=== PATIENT | female | born 1960 | race Caucasian/White ===

== ENCOUNTER → 2018-01-23 09:07 | Outpatient (CLI) | payer BC, SELFPAY ==
[2018-01-29 11:13] LABS: HPV APTIMA, High Risk Negative (Negative)
== END ==
PROVIDERS: Visit Provider Nurse Practitioner Women's Health
DX: Z12.4 Encounter for screening for malignant neoplasm of cervix (principal)
CPT/HCPCS: 88175; G0145

== ENCOUNTER → 2018-01-23 12:01 | Outpatient (CLI) | payer BC, SELFPAY ==
--- NOTE | 2018-01-23 12:17 | BI_ITS ---
MAMMOGRAPHY - BILATERAL SCREENING REASON FOR EXAM: Female, 57 years old. Routine annual screening examination. PERTINENT HISTORY: Mother with breast cancer. Remote left excisional breast biopsy. TECHNIQUE: Digital bilateral breast quique (3D mammographic acquisition) in the CC and MLO projections. 2-D mediolateral oblique (MLO) and craniocaudad (CC) views of both breasts were obtained. CAD: Full Field Digital Mammography with Computer Added Detection was performed. COMPARISON: Comparison is made with prior outside examination dated January 14, 2017. FINDINGS: Breast Composition: There are scattered areas of fibroglandular density. There are no dominant masses or suspicious calcifications. Stable benign-appearing right axillary nodes. A tissue clip marker is seen in the deep slightly upper lateral portion of the left breast. No other significant abnormalities are identified. There has been no significant change since the prior study. BI/SCREENING MAMM (CAD), BILAT IMPRESSION: Stable bilateral screening mammogram. Yearly follow-up mammogram recommended. (A) ASSESSMENT CATEGORY: BIRADS Category 2: Benign. A letter regarding these results will be sent to the patient by the facility within 30 days. Approximately 10% of breast cancers are not detected by mammography. A normal mammogram should not delay biopsy of a clinically suspicious abnormality. [id number] Electronically Signed: Tre Duarte MD at 14:36 EDT Tel [phone], Service support ,
== END ==
PROVIDERS: Family Provider Family Medicine; PCP Family Medicine; Visit Provider Nurse Practitioner Women's Health
DX: Z12.31 Encounter for screening mammogram for malignant neoplasm of breast (principal)
CPT/HCPCS: 77063; 77067

== ENCOUNTER → 2019-02-25 | Outpatient (CLI) | payer BC, SELFPAY ==
[2019-02-25 12:09] VITALS: BMI 31.4
--- NOTE | 2019-02-25 12:43 | BI_ITS ---
MAMMOGRAPHY - BILATERAL SCREENING REASON FOR EXAM: Female, 58 years old. Routine annual screening examination. PERTINENT HISTORY: Mother with breast cancer. TECHNIQUE: Digital bilateral breast isrrael (3D mammographic acquisition) in the CC and MLO projections. 2-D mediolateral oblique (MLO) and craniocaudad (CC) views of both breasts were obtained. CAD: Full Field Digital Mammography with Computer Added Detection was performed. COMPARISON: Comparison is made with prior study dated January 23, 2018. FINDINGS: Breast Composition: There are scattered areas of fibroglandular density. There are no dominant masses or suspicious calcifications. Once again, a tissue clip marker is in the upper lateral aspect of the left breast. Stable appearance of the bilateral axillary lymph nodes. No other significant abnormalities are identified. There has been no significant change since the prior study. BI/SCREEN MAMM (CAD) W/ISRRAEL BILAT IMPRESSION: Stable bilateral screening mammogram. Yearly follow-up mammogram recommended. (A) ASSESSMENT CATEGORY: BIRADS Category 2: Benign. A letter regarding these results will be sent to the patient by the facility within 30 days. Approximately 10% of breast cancers are not detected by mammography. A normal mammogram should not delay biopsy of a clinically suspicious abnormality. [id number] Electronically Signed: Tre Duarte, at 14:19 EDT , Service support ,
== END | disposition home or self-care (01) ==
LOC: OPBI 12:39
PROVIDERS: Family Provider Family Medicine; PCP Family Medicine; Referring Provider Nurse Practitioner Women's Health; Visit Provider Nurse Practitioner Women's Health
DX: Z12.31 Encounter for screening mammogram for malignant neoplasm of breast (principal)
CPT/HCPCS: 77063; 77067

== ENCOUNTER 2019-07-21 07:52 | Day surgery (SDC) | payer BC, SELFPAY ==
[2019-02-25 12:09] VITALS: BMI 31.4
[2019-07-09 13:16] VITALS: BMI 31.4
[2019-07-21] VITALS (7 sets, daily range): BP systolic 93–135; BP diastolic 62–88; PULSE 62–78; RESP 14–16; TEMP 36.1–36.6; O2SAT 96–100; BMI 29.6
[2019-07-21] MEDS: Lactated Ringers 1,000 ML 100 ML IV (08:30)
--- NOTE | 2019-07-21 08:52 | PCM.HP.STD ---
Problem List (1) Screening for intestinal cancer Status: Acute History of Present Illness Date of Admission: 07/21/19 The patient is a 58 year old F who presents for a surveillance colonoscopy today. She has had no symptoms. No abdominal pain. No bright red blood per rectum. Her father had colon cancer. Her most recent colonoscopy was January 20, 2016. The technique was difficult to a complex tortuous colon. Sedation was increased. A 7 mm polyp was seen at the splenic flexure. Of 4 mm polyp was seen in the descending colon. These were removed. And were tubular adenomas. Past Medical History Past Medical History (Chronic Problems): Chronic Problems (Last Reviewed 02/25/19 @ 11:54 by Marika Young) Pre-diabetes (Chronic) Seasonal allergies (Chronic) Anxiety (Chronic) Chronic back pain (Chronic) Chronic neck pain (Chronic) Hiatal hernia (Chronic) Hypertension (Chronic) Medical History: Medical History (Last Reviewed 02/25/19 @ 11:54 by Marika Young) Pre-diabetes (Chronic) R73.03 Seasonal allergies (Chronic) J30.2 Anxiety (Chronic) F41.9 Chronic back pain (Chronic) M54.9, G89.29 Chronic neck pain (Chronic) M54.2, G89.29 Hiatal hernia (Chronic) K44.9 Hypertension (Chronic) I10 Allergies codeine Allergy (Mild, Verified 07/21/19 08:20) upset stomach Penicillins Allergy (Mild, Verified 07/21/19 08:20) unknown Home Medications: Ambulatory Orders Medication Instructions Recorded cetirizine 10 mg tablet 10 mg PO QDAY 01/23/18 lisinopril 10 mg tablet 10 mg PO QDAY 01/23/18 lorazepam 0.5 mg tablet 0.5 mg PO PRN PRN 01/23/18 tramadol 50 mg tablet 100 mg PO BID 01/23/18 multivitamin tablet 1 tab PO DAILY 02/25/19 omeprazole 20 mg capsule,delayed 20 mg PO PRN PRN 02/25/19 release peg 3350-electrolytes 236 4,000 ml PO ONCE #4000 ml 07/08/19 gram-22.74 gram-6.74 gram-5.86 gram solution Surgical History: Surgical History (Last Reviewed 02/25/19 @ 11:54 by Marika Young) Status post left breast lumpectomy Z98.890 umbilical surgery Smoking Status: Former smoker Tobacco Use: Non-smoker Review of Systems HEENT: Denies: Difficulty Swallowing Cardiovascular: Denies: Chest Pressure Respiratory: Denies: Cough Gastrointestinal: Denies: Abdominal Pain Endocrine: Denies: Change in Body Habitus VTE Information - Inpt Only VTE Present on Admission: No Patient Problems: Active and Suspected Problems (Last Reviewed 02/25/19 @ 11:54 by Marika Young) Screening for intestinal cancer (Acute) - Physical Exam General: Alert, Oriented x3, Cooperative, No apparent distress Oral: Moist Mucosa Lungs: Clear to auscultation Cardiovascular: Regular rate, Regular Rhythm Abdomen: Bowel Sounds Present, Soft, Non Tender Vital Signs Temp Pulse Resp BP Pulse Ox 97.8 F 78 16 113/69 96 07/21/19 08:21 07/21/19 08:21 07/21/19 08:21 07/21/19 08:21 07/21/19 08:21 Oxygen Delivery Method Room Air Weight: 156 lb 11.979 oz Body Mass Index (BMI) 29.6 Assessment/Plan All Active Problems (Last Reviewed 02/25/19 @ 11:54 by Marika Young) Screening for intestinal cancer (Acute) I recommended the patient a surveillance colonoscopy. She is aware of the technique, benefits, risks, alternatives. She has had an opportunity to ask and have questions answered. She presents via our open access program today. We will proceed as noted. Yefri Brizuela M.D., F.A.C.S.
--- NOTE | 2019-07-21 09:34 | OP.ENDO_ITS ---
07/21/2019 Yefri Sahni [address] [place] [address] Re : Colonoscopy procedure for Terri Mccallum Dear Dr. Sahni This procedure was performed on Sunday, July 21, 2019. My impressions and recommendations are as follows: Impressions : - Hemorrhoids found on perianal exam. - Diverticulosis in the sigmoid colon and in the descending colon. - The examination was otherwise normal. - No specimens collected. Recommendations : - Discharge patient to home. - Resume previous diet. - Continue present medications. - Repeat colonoscopy in 5 years for surveillance. My findings are described in the full procedure note, which is enclosed. If I can be of further assistance, please feel free to contact me at Doctor phone number(s): Work: . Sincerely, Yefri Brizuela MD 07/21/2019 9:33:43 AM This report has been signed electronically.
== END 2019-07-21 10:28 | disposition home or self-care (01) ==
LOC: EN 07:53 → AC 07:54
PROVIDERS: Family Provider Family Medicine; PCP Family Medicine; Referring Provider Family Medicine; Visit Provider Surgery
PROC: 0DJD8ZZ Inspection of Lower Intestinal Tract, Via Natural or Artificial Opening Endoscopic (ICD-10-PCS; CPT 45378; principal; 2019-07-21 09:10)
DX: Z12.11 Encounter for screening for malignant neoplasm of colon (principal); K64.9 Unspecified hemorrhoids; K57.30 Diverticulosis of large intestine without perforation or abscess without bleeding; Z86.010 Personal history of colon polyps; Z80.0 Family history of malignant neoplasm of digestive organs; F41.9 Anxiety disorder, unspecified; M54.9 Dorsalgia, unspecified; M54.2 Cervicalgia; G89.29 Other chronic pain; K44.9 Diaphragmatic hernia without obstruction or gangrene; I10 Essential (primary) hypertension; R73.03 Prediabetes; J30.2 Other seasonal allergic rhinitis; Z79.899 Other long term (current) drug therapy; Z87.891 Personal history of nicotine dependence
CPT/HCPCS: 45378; 99152; 99153; J7120

== ENCOUNTER → 2020-03-15 12:46 | Outpatient (CLI) | payer BC, SELFPAY ==
[2019-07-09 13:16] VITALS: BMI 31.4
[2019-07-21 08:21] VITALS: BMI 29.6
--- NOTE | 2020-03-15 12:47 | BI_ITS ---
MAMMOGRAPHY - BILATERAL SCREENING REASON FOR EXAM: Female, 59 years old. Routine annual screening examination. PERTINENT HISTORY: Mother with breast cancer. Remote left excisional breast biopsy. TECHNIQUE: Digital bilateral breast isrrael (3D mammographic acquisition) in the CC and MLO projections. 2-D mediolateral oblique (MLO) and craniocaudad (CC) views of both breasts were obtained. CAD: Full Field Digital Mammography with Computer Added Detection was performed. COMPARISON: Comparison is made with prior examination dated February 25, 2019 and January 23, 2018. FINDINGS: Breast Composition: There are scattered areas of fibroglandular density. There are no dominant masses or suspicious calcifications. A tissue clip marker is once again seen in the upper lateral aspect of the left breast. No other significant abnormalities are identified. There has been no significant change since the prior study. BI/SCREEN MAMM (CAD) W/ISRRAEL BILAT IMPRESSION: Stable bilateral screening mammogram. Yearly follow-up mammogram recommended. (A) ASSESSMENT CATEGORY: BIRADS Category 2: Benign. A letter regarding these results will be sent to the patient by the facility within 30 days. Approximately 10% of breast cancers are not detected by mammography. A normal mammogram should not delay biopsy of a clinically suspicious abnormality. [id number] Electronically Signed: Tre Duarte, at 14:19 EDT , Service support ,
== END ==
PROVIDERS: Family Provider Family Medicine; PCP Family Medicine; Referring Provider Obstetrics & Gynecology; Visit Provider Obstetrics & Gynecology
DX: Z12.31 Encounter for screening mammogram for malignant neoplasm of breast (principal)
CPT/HCPCS: 77063; 77067

== ENCOUNTER → 2020-11-23 16:53 | Outpatient (CLI) | payer BC, SELFPAY ==
[2020-11-23 13:08] VITALS: BMI 31.8
--- NOTE | 2020-11-23 13:30 | EMB_PTH ---
PATIENT: RADAMES ESCAMILLA LOC: [facility] U#:[id number] AGE/SX: 65/F ROOM: RE11/23/[address]: DIONE Sevilla : 1960 BED: DIS: SPEC #: [id number] RECD: 11/23/20 16:34 STATUS: RONAK JANNET #: [id number] IRON: 11/23/20 13:[address]: Sasha Mccallum NP DEPT: SURGICAL PATHOLOGY RECD BY: Chasity Garnica ENTERED: 11/24/20 07:26 SP TYPE: ENDOM BX/C FALGUNI DR: Dr. Yefri Sahni MD Tissues: Endometrium, NOS Procedures: Surgery Specimen Level IV HEADER OPERATION: Endometrial biopsy PRE-OP DIAGNOSIS: Abnormal uterine bleeding TISSUE SUBMITTED: Endometrial biopsy MICROSCOPIC DIAGNOSIS Endometrial biopsy: Strips of benign endometrial epithelium and superficial fragments of benign endometrial tissue, consistent with atrophic endometrium. See comment. EDWARD:caridad 11/25/2020 COMMENT Clinical correlation and appropriate follow up are necessary. MICROSCOPIC DESCRIPTION Slides are reviewed. GROSS DESCRIPTION Received in fixative is one container labeled with the patient's name and designated endometrial biopsy. The specimen consists of multiple irregular fragments of light vanegas soft tissue that in aggregate measure 2 x 0.5 x 0.1 cm. The specimen is totally submitted in one cassette. / AM:caridad 11/24/20 TC:4 CPT: 84325
== END ==
PROVIDERS: PCP Family Medicine; Referring Provider Nurse Practitioner Women's Health; Visit Provider Nurse Practitioner Women's Health
DX: M54.5 Low back pain (principal); N95.0 Postmenopausal bleeding
CPT/HCPCS: 87086; 87088; 88305

== ENCOUNTER → 2020-12-01 13:46 | Outpatient (CLI) | payer BC, SELFPAY ==
[2020-11-23 13:08] VITALS: BMI 31.8
--- NOTE | 2020-12-01 13:48 | US_ITS ---
STUDY: ULTRASOUND OF THE FEMALE PELVIS - COMPLETE REASON FOR EXAM: Female, 60 years old. PMB LMP: The patient is postmenopausal. TECHNIQUE: Transabdominal and Transvaginal TECHNICAL QUALITY: Adequate. COMPARISON: None. FINDINGS: The uterus is anteverted and is in a midline position. The uterus measures 7.5 cm x 3.7 cm x 3.1 cm. There is a Nabothian cyst of the cervix. The endometrium is thickened and measures 10.1 mm in thickness, and is hyperechoic with cystic changes. The myometrium is of heterogeneous echotexture although no definite fibroids are seen. I.U.D. - The patient does not have an I.U.D. The right ovary is visualized. The right ovary measures 1.7 cm x 2.2 cm x 1.2 cm. There is no right ovarian cyst or ovarian mass. There is no visualized right adnexal mass or complex lesion. There is normal arterial and normal venous vascularity. The left ovary is visualized. The left ovary measures 1.9 cm x 1.4 cm x 1.2 cm. There is no left ovarian cyst or ovarian mass. There is no visualized left adnexal mass or complex lesion. There is normal arterial and normal venous vascularity. There is no fluid in the cul-de-sac. The pre void volume of the bladder was 240 ml. US/Transvaginal Non- IMPRESSION: Heterogeneous thickening of the endometrium with cystic changes. Further workup is recommended. Electronically Signed: Tre Duarte MD at 15:30 EST , Service support ,
--- NOTE | 2020-12-01 13:48 | US_ITS ---
STUDY: ULTRASOUND OF THE FEMALE PELVIS - COMPLETE REASON FOR EXAM: Female, 60 years old. PMB LMP: The patient is postmenopausal. TECHNIQUE: Transabdominal and Transvaginal TECHNICAL QUALITY: Adequate. COMPARISON: None. FINDINGS: The uterus is anteverted and is in a midline position. The uterus measures 7.5 cm x 3.7 cm x 3.1 cm. There is a Nabothian cyst of the cervix. The endometrium is thickened and measures 10.1 mm in thickness, and is hyperechoic with cystic changes. The myometrium is of heterogeneous echotexture although no definite fibroids are seen. I.U.D. - The patient does not have an I.U.D. The right ovary is visualized. The right ovary measures 1.7 cm x 2.2 cm x 1.2 cm. There is no right ovarian cyst or ovarian mass. There is no visualized right adnexal mass or complex lesion. There is normal arterial and normal venous vascularity. The left ovary is visualized. The left ovary measures 1.9 cm x 1.4 cm x 1.2 cm. There is no left ovarian cyst or ovarian mass. There is no visualized left adnexal mass or complex lesion. There is normal arterial and normal venous vascularity. There is no fluid in the cul-de-sac. The pre void volume of the bladder was 240 ml. US/Pelvic (Non ) IMPRESSION: Heterogeneous thickening of the endometrium with cystic changes. Further workup is recommended. Electronically Signed: Tre Duarte MD at 15:30 EST , Service support ,
== END ==
PROVIDERS: PCP Family Medicine; Visit Provider Nurse Practitioner Women's Health
DX: N95.0 Postmenopausal bleeding (principal)
CPT/HCPCS: 76830; 76856

== ENCOUNTER 2020-12-27 12:15 | Day surgery (SDC) | payer BC, SELFPAY ==
[2020-12-02 11:57] VITALS: BMI 31.6
[2020-12-26 14:25] LABS: Absolute Lymphocyte Count 1.67 X10^3/uL (0.83-4.51); Absolute Neutrophil Count 3.5 X10^3/uL (2.0-7.7); Basophil# 0.02 X10^3/uL; Basophil% 0.4 % (0-1); Eosinophil# 0.08 X10^3/uL; Eosinophils% 1.4 % (0-5); Hematocrit 41.6 % (37-47); Hemoglobin 13.5 g/dL (12.0-15.0); Lymphocyte # 1.67 X10^3/ul (4.0); Lymphocyte % 29.7 % (19-41); Mean Corp Hgb Conc 32.5 g/dL (32-36); Mean Corpuscular Volume 95.4 fL (81-99); Mean Platelet Vol. 11.1 fl (6.2-12.0); Monocyte# 0.39 X10^3/uL; Monocyte% 6.9 % (0-10); NRBC Flagged by Analyzer 0 % (0-5); Neutrophil # 3.46 X10^3/uL (2.7-7.7); Neutrophil % 61.4 % (47-70); Platelet Count 173 K/mm3 (150-450); RBC Distribution Width CV 12.2 % (11.6-14.6); RBC Distribution Width SD 42.5 fl (35.1-43.9); Red Blood Count 4.36 M/mm3 (4.2-5.4); White Blood Count 5.6 K/mm3 (4.4-11.0)
[2020-12-27] VITALS (8 sets, daily range): BP systolic 121–137; BP diastolic 66–87; PULSE 83–97; RESP 16; TEMP 36.6–37.4; O2SAT 97–100; BMI 31.6
[2020-12-27] MEDS: Lactated Ringers 1,000 ML 100 ML IV (12:57)
--- NOTE | 2020-12-27 13:17 | HP.PCM_ITS ---
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 Is patient in pain?: No Allergies codeine Allergy (Mild, Verified 12/02/20 11:57) upset stomach Penicillins Allergy (Mild, Verified 12/02/20 11:57) unknown seasonal allergies Allergy (Intermediate, Uncoded 11/23/20 13:15) Unknown Medications cetirizine 10 mg tablet 10 mg PO QDAY 01/23/18 [History Confirmed 12/02/20] lisinopril 10 mg tablet 10 mg PO QDAY 01/23/18 [History Confirmed 12/02/20] lorazepam 0.5 mg tablet 0.5 mg PO PRN PRN 01/23/18 [History Confirmed 12/02/20] tramadol 50 mg tablet 100 mg PO BID 01/23/18 [History Confirmed 12/02/20] multivitamin 1 tab PO DAILY 02/25/19 [History Confirmed 12/02/20] omeprazole 20 mg capsule,delayed release 20 mg PO PRN PRN 02/25/19 [History Confirmed 12/02/20] natural radiance TRANSDERMAL 2XW 03/15/20 [History Confirmed 12/02/20] norethindrone acetate 5 mg tablet 5 mg PO .COMPLEX #45 tab 12/01/20 [Rx Confirmed 12/02/20] Is last menstrual period known: No Post menopausal: Yes Patient : No : No PFSH Medical History Pre-diabetes (Chronic) Seasonal allergies (Chronic) Anxiety (Chronic) Chronic back pain (Chronic) Chronic neck pain (Chronic) Hiatal hernia (Chronic) Hypertension (Chronic) Surgical History Status post left breast lumpectomy (Resolved) umbilical surgery (Resolved) Family History Father Diabetes Colon cancer Heart disease Mother Hypertension Breast cancer Esophageal cancer Other CVA (cerebral vascular accident) Social History (Updated 12/02/20 @ 17:[address] 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 Started spotting about 2 weeks ago. Patient reports continued spotting since this time. Was prescribed Aygestin, but did not start this until this morning. Denies pain. Did have 1 prior episode of postmenopausal bleeding while on HRT, but has not had any further episodes since this was discontinued many years ago. Pregancy History 1 Elective abortions Hx Para 0 Spontaneous abortions Hx # Term Pregnancies Ectopic pregnancies Hx # Pregnancies Multiple births # of living children Past Pregnancies Del. Date Name GA/Weeks Outcome Route Bth Weight Gen Labor Lgth Anesthesia Del [facility] Provider FOB Unknown Delivery Date: Baby was delivered at 6 months Marika Young Const Constitutional: Reports system reviewed and no additional complaints, except as docu; denies chills or fever(s) Eyes Eyes: Reports system reviewed and no additional complaints, except as docu ENT ENT: Reports system reviewed and no additional complaints, except as docu Cardio Card: Reports system reviewed and no additional complaints, except as docu; denies chest pain, leg swelling or rapid, pounding, or irregular heartbeat Resp Resp: Reports system reviewed and no additional complaints, except as docu; denies dyspnea GI GI: Reports system reviewed and no additional complaints, except as docu; denies constipation, nausea or vomiting : Reports system reviewed and no additional complaints, except as docu; denies painful urination, pelvic pain, urinary frequency, urinary hesitancy, urinary urgency, vaginal discharge, vaginal odor or vaginal itching Musc Musc: Reports system reviewed and no additional complaints, except as docu Skin Skin/Breast: Reports system reviewed and no additional complaints, except as docu Neuro Neuro: Reports system reviewed and no additional complaints, except as docu Psych Psych: Reports system reviewed and no additional complaints, except as docu Endo Endo: Reports system reviewed and no additional complaints, except as docu Exam Const General: cooperative, healthy appearing, comfortable, well developed, well groomed Neck Neck: normal visual inspection, full ROM Resp Effort & Inspection: normal respiratory effort, able to speak in complete sentences, symmetric chest movement Cardio Rate: regular rate Skin General: no rashes or lesions noted, elasticity normal, turgor normal Lesions: no lesions Rashes: no rashes Neuro General: alert, awake, oriented x3 Cranial Nerves: CN's II-XI intact bilaterally, PERRL, EOM intact bilaterally Cognition: normal cognition Speech: speech normal Gait: normal gait Extrem General: normal to inspection, full ROM, no pedal edema Psych Appearance: grossly normal Mental Status: mental status grossly normal Mood: congruent mood Affect: normal affect Speech and Movement: speech and movement normal Attitude: cooperative Thought Process: normal Thought Content: normal Assessment & Plan 1. Postmenopausal bleeding N95.0 Plan Patient presents with 2 days of postmenopausal bleeding. Had an ultrasound done that showed a 10 mm lining with cystic changes concerning for an endometrial polyp. Patient was prescribed Aygestin to try to stop bleeding, but had not started this until today. Discussed with patient that given the thickness of her lining and the fact that there features concerning for a polyp, I would recommend proceeding with a hysteroscopy, D&C, polypectomy. The nature of the procedure was described to the patient. The risks, benefits, indications, and alternatives to the procedure were discussed with the patient including bleeding, infection, and damage to surrounding structures. Discussed that risks are very low with D&C. Discussed the possibility of perforation and that this could require laparotomy or laparoscopy. Discussed the possibility of damage to surrounding structures including uterus, tubes, ovaries, bowel, or bladder. Understands the risk of hospitalization or reoperation. Voices understanding and agrees to proceed. Planned procedures hysteroscopy, D&C, polypectomy, possible symphion Handouts from [facility] and up-to-date given to the patient with information regarding the procedure and postmenopausal bleeding UPDATE- I have seen the patient and performed any clinically relevant updates to the history and physical exam. Pastora Reardon MD
--- NOTE | 2020-12-27 13:21 | DCINST_ITS ---
Discharge Diet: No Restrictions Discharge Activity: Return to Normal Activity, May Shower, May Take a Tub Bath - in 2 weeks. Allergies/Adverse Reactions: Allergies Penicillins Allergy (Mild, Verified 12/27/20 12:29) unknown codeine Adverse Reaction (Mild, Verified 12/27/20 12:58) upset stomach seasonal allergies Allergy (Intermediate, Uncoded 12/27/20 12:29) Unknown Medications to take at Discharge cetirizine 10 mg tablet 10 mg PO QDAY 01/23/18 lisinopril 10 mg tablet 10 mg PO QDAY 01/23/18 lorazepam 0.5 mg tablet 0.5 mg PO PRN PRN 01/23/18 tramadol 50 mg tablet 100 mg PO BID 01/23/18 multivitamin 1 tab PO DAILY 02/25/19 omeprazole 20 mg capsule,delayed release 20 mg PO PRN PRN 02/25/19 natural radiance TRANSDERMAL 2XW 03/15/20 Norethindrone Acetate 5 mg PO BID 12/20/20 Primary Care Physician: Yefri Sahni MD [Primary Care Provider] - Test Results: Test results from this visit will be discussed in further detail at your follow- up appointment, if applicable.
--- NOTE | 2020-12-27 13:30 | EMB_PTH ---
PATIENT: RADAMES ESCAMILLA LOC: [facility] [place] U#:[id number] AGE/SX: 60/F ROOM: RE12/27/[address]: Dr. Pastora Reardon MD : 1960 BED: DIS: 12/27/2020 SPEC #: [id number] RECD: 12/27/20 15:44 STATUS: RONAK POWER #: [id number] IRON: 12/27/20 13:[address]: Pastora Reardon DEPT: SURGICAL PATHOLOGY RECD BY: Cheryl Bates ENTERED: 12/28/20 08:53 SP TYPE: ENDOM BX/C FABRICEHR DR: Dr. Yefri Sahni MD Tissues: Endometrium, NOS Procedures: Surgery Specimen Level IV HEADER OPERATION: Hysteroscopy, D & C, polypectomy, Symphion PRE-OP DIAGNOSIS: Postmenopausal bleeding TISSUE SUBMITTED: Polyp and endometrial curettings MICROSCOPIC DIAGNOSIS Endometrium, curetting: Polypoid fragments of endometrium with simple cystic hyperplasia without atypia. Background of secretory endometrium. Detached fragments of squamous mucosa with no pathologic change. See comment. AM:caridad 12/29/2020 COMMENT No other change appears to involve the lower uterine endometrium and proximal endocervix. Clinical correlation is suggested. Case has been reviewed in consultation with Dr. Bonner who concurs with the above diagnosis. IDC:EDWARD MICROSCOPIC DESCRIPTION Slides are reviewed. GROSS DESCRIPTION Received in fixative is one container labeled with the patient's name and designated polyp and endometrial curettings. The specimen consists of multiple fragments of vanegas hemorrhagic soft tissue that in aggregate measure 5 x 3 x 0.3 cm. The entire specimen is submitted in two cassettes. / EDWARD:caridad 12/28/20 TC:5 CPT: 50754
--- NOTE | 2020-12-27 15:21 | PCM.OPRPT ---
Problem List (1) Postmenopausal bleeding Status: Acute Report of Operation Date of Procedure: 12/27/20 Pre-Operative Diagnosis: Postmenopausal bleeding, suspected endometrial polyp Post-Operative Diagnosis: same, endometrial polyp Surgery/Procedure Performed:: Hysteroscopy, D&C, polypectomy with symphion Description of Surgical Findings:: Normal appearing cervix, large endometrial polyp customer care coordinator: None Type of Anesthesia:: MAC Specimen's removed: Endometrial curettings and polyp Estimated Blood Loss (mL): 5 mL Fluids Replaced: 700 mL Description of Procedure: The patient was taken to the operating room where general anesthesia was obtained without difficulty. She was prepped and draped in the dorsolithotomy position with yellowfin stirrups. Weighted speculum was placed in the posterior aspect of the vagina and the anterior lip of the cervix was grasped with a single-tooth tenaculum. The cervix was sequentially dilated to accommodate the hysteroscope. The hysteroscope was then introduced into the uterine cavity and the above findings were noted. The symphion device was then introduced through the hysteroscope and activated to fully resect the polyp. Hemostasis was noted. The hysteroscope was removed from the uterine cavity and a sharp curettage was performed. The procedure was deemed complete. All instruments were then removed from the vagina. The patient was again from anesthesia and taken to the recovery room in stable condition. - Complications None apparent - Admit VTE Documentation VTE Present on Admission: No VTE Mechan Device Prophylaxis: SCD's VTE Pharm Prophylaxis ordered?: No Multi Select Codes - Urinary/Genital Urinary/Genital CPT Codes: 18271 Hysteroscopy,EMC, Polypectomy
== END 2020-12-27 16:57 | disposition home or self-care (01) ==
LOC: SDC 12:21 → AC 12:23
PROVIDERS: PCP Family Medicine; Referring Provider Obstetrics & Gynecology; Visit Provider Obstetrics & Gynecology
PROC: 0UB98ZZ Excision of Uterus, Via Natural or Artificial Opening Endoscopic (ICD-10-PCS; CPT 58558; principal; 2020-12-27 13:15)
DX: N85.01 Benign endometrial hyperplasia (principal); N95.0 Postmenopausal bleeding; Z20.822 Contact with and (suspected) exposure to COVID-19; I10 Essential (primary) hypertension; R73.03 Prediabetes; G89.29 Other chronic pain; M54.2 Cervicalgia; M54.9 Dorsalgia, unspecified; K21.9 Gastro-esophageal reflux disease without esophagitis; F41.9 Anxiety disorder, unspecified; Z79.899 Other long term (current) drug therapy; Z78.0 Asymptomatic menopausal state; Z87.891 Personal history of nicotine dependence
CPT/HCPCS: 00952; 58558; 36415; 85025; 86850; 86900; 86901; 87426; 88305; C9803; J2405

== ENCOUNTER → 2021-01-09 14:17 | Outpatient (CLI) | payer BC, SELFPAY ==
[2020-12-27 12:52] VITALS: BMI 31.6
[2021-01-09 15:26] LABS: NATERA MAILED SPECIMEN
== END ==
PROVIDERS: PCP Family Medicine; Referring Provider Nurse Practitioner Women's Health; Visit Provider Nurse Practitioner Women's Health
DX: Z13.9 Encounter for screening, unspecified (principal); Z80.3 Family history of malignant neoplasm of breast
CPT/HCPCS: 36415

== ENCOUNTER → 2021-01-30 12:33 | Outpatient (CLI) | payer BC, SELFPAY ==
[2020-03-15 13:55] VITALS: BMI 29.6
[2020-12-27 12:52] VITALS: BMI 31.6
--- NOTE | 2021-01-30 12:35 | BI_ITS ---
MAMMOGRAPHY - BILATERAL SCREENING REASON FOR EXAM: Female, 60 years old. Routine annual screening examination. PERTINENT HISTORY: Mother with breast cancer. Remote left excisional breast biopsy. TECHNIQUE: Digital bilateral breast isrrael (3D mammographic acquisition) in the CC and MLO projections. 2-D mediolateral oblique (MLO) and craniocaudad (CC) views of both breasts were obtained. CAD: Full Field Digital Mammography with Computer Added Detection was performed. COMPARISON: Comparison is made with prior examination dated 03/15/2020 and 02/25/2019. FINDINGS: Breast Composition: There are scattered areas of fibroglandular density. There are no dominant masses or suspicious calcifications. Stable benign appearing bilateral axillary lymph nodes. A tissue clip marker is once again seen in the upper lateral aspect of the left breast. No other significant abnormalities are identified. There has been no significant change since the prior study. BI/SCRN MAMM (CAD)W/ISRRAEL BILAT IMPRESSION: Stable bilateral screening mammogram. Yearly follow-up mammogram recommended. (A) ASSESSMENT CATEGORY: BIRADS Category 2: Benign. A letter regarding these results will be sent to the patient by the facility within 30 days. Approximately 10% of breast cancers are not detected by mammography. A normal mammogram should not delay biopsy of a clinically suspicious abnormality. [id number] Electronically Signed: Tre Duarte MD at 13:48 EDT , Service support ,
== END ==
PROVIDERS: PCP Family Medicine; Referring Provider Obstetrics & Gynecology; Visit Provider Obstetrics & Gynecology
DX: Z12.31 Encounter for screening mammogram for malignant neoplasm of breast (principal)
CPT/HCPCS: 77063; 77067

== ENCOUNTER → 2021-07-26 13:48 | Outpatient (CLI) | payer BC, SELFPAY ==
--- NOTE | 2021-07-26 13:51 | US_ITS ---
STUDY: ULTRASOUND OF THE FEMALE PELVIS - COMPLETE REASON FOR EXAM: Female, 61 years old. History of endometrial hyperplasia without atypia LMP: Postmenopausal TECHNIQUE: Transabdominal and Transvaginal TECHNICAL QUALITY: Adequate. COMPARISON: None. FINDINGS: The uterus is anteverted and is in a midline position. The uterus measures 6.6 x 3.8 x 2.9 cm and has a heterogeneous echotexture. There is a Nabothian cyst of the cervix. The endometrium measures 3 mm in thickness, and is hyperechoic. There is no demonstrated endometrial mass. There is no demonstrated myometrial mass. I.U.D. - The patient does not have an I.U.D. The right ovary is visualized. The right ovary measures 2.1 x 1.9 x 1.2 cm. There is no right ovarian cyst or ovarian mass. There is no visualized right adnexal mass or complex lesion. There is normal arterial and normal venous vascularity. The left ovary is visualized. The left ovary measures 1.4 x 1.5 x 0.9 cm. There is no left ovarian cyst or ovarian mass. There is no visualized left adnexal mass or complex lesion. There is normal arterial and normal venous vascularity. There is no fluid in the cul-de-sac. The pre void volume of the bladder was 270 ml. Polycystic ovary disease: No. US/Pelvic (Non ) IMPRESSION: Normal appearance of the endometrium. No acute abnormal finding. Electronically Signed: Rajiv Mccain MD at 6:32 EDT Tel , Service support ,
--- NOTE | 2021-07-26 13:51 | US_ITS ---
STUDY: ULTRASOUND OF THE FEMALE PELVIS - COMPLETE REASON FOR EXAM: Female, 61 years old. History of endometrial hyperplasia without atypia LMP: Postmenopausal TECHNIQUE: Transabdominal and Transvaginal TECHNICAL QUALITY: Adequate. COMPARISON: None. FINDINGS: The uterus is anteverted and is in a midline position. The uterus measures 6.6 x 3.8 x 2.9 cm and has a heterogeneous echotexture. There is a Nabothian cyst of the cervix. The endometrium measures 3 mm in thickness, and is hyperechoic. There is no demonstrated endometrial mass. There is no demonstrated myometrial mass. I.U.D. - The patient does not have an I.U.D. The right ovary is visualized. The right ovary measures 2.1 x 1.9 x 1.2 cm. There is no right ovarian cyst or ovarian mass. There is no visualized right adnexal mass or complex lesion. There is normal arterial and normal venous vascularity. The left ovary is visualized. The left ovary measures 1.4 x 1.5 x 0.9 cm. There is no left ovarian cyst or ovarian mass. There is no visualized left adnexal mass or complex lesion. There is normal arterial and normal venous vascularity. There is no fluid in the cul-de-sac. The pre void volume of the bladder was 270 ml. Polycystic ovary disease: No. US/Transvaginal Non- IMPRESSION: Normal appearance of the endometrium. No acute abnormal finding. Electronically Signed: Rajiv Mccain MD at 6:32 EDT Tel , Service support ,
== END ==
PROVIDERS: PCP Family Medicine; Visit Provider Nurse Practitioner Women's Health
DX: N85.01 Benign endometrial hyperplasia (principal)
CPT/HCPCS: 76830; 76856

== ENCOUNTER 2022-01-17 13:27 | Outpatient (CLI) | payer BC, SELFPAY ==
--- NOTE | 2022-01-17 13:28 | BI_ITS ---
MAMMOGRAPHY - BILATERAL SCREENING REASON FOR EXAM: Female, 61 years old. Routine annual screening examination. PERTINENT HISTORY: Mother with breast cancer. Remote left excisional breast biopsy. TECHNIQUE: Digital bilateral breast isrrael (3D mammographic acquisition) in the CC and MLO projections. 2-D mediolateral oblique (MLO) and craniocaudad (CC) views of both breasts were obtained. CAD: Full Field Digital Mammography with Computer Added Detection was performed. COMPARISON: Comparison is made with prior study dated 01/30/2021 and 03/15/2020. FINDINGS: Breast Composition: There are scattered areas of fibroglandular density. There are no dominant masses or suspicious calcifications. A tissue clip marker is once again seen in the deep upper lateral aspect of the left breast. Stable bilateral axillary lymph nodes. No other significant abnormalities are identified. There has been no significant change since the prior study. BI/SCRN MAMM (CAD)W/ISRRAEL BILAT IMPRESSION: Stable bilateral screening mammogram. Yearly follow-up mammogram recommended. (A) ASSESSMENT CATEGORY: BIRADS Category 2: Benign. A letter regarding these results will be sent to the patient by the facility within 30 days. Approximately 10% of breast cancers are not detected by mammography. A normal mammogram should not delay biopsy of a clinically suspicious abnormality. [id number] Electronically Signed: Tre Duarte MD at 14:22 EDT ,
== END 2022-01-17 23:59 | disposition home or self-care (01) ==
LOC: OPBI 13:27
PROVIDERS: PCP Family Medicine; Visit Provider Nurse Practitioner Women's Health
DX: Z12.31 Encounter for screening mammogram for malignant neoplasm of breast (principal); Z80.3 Family history of malignant neoplasm of breast
CPT/HCPCS: 77063; 77067

== ENCOUNTER → 2023-01-21 | Outpatient (CLI) | payer BC, SELFPAY ==
--- NOTE | 2023-01-21 13:05 | BI_ITS ---
MAMMOGRAPHY - BILATERAL SCREENING REASON FOR EXAM: Female, 62 years old. Routine annual screening examination. PERTINENT HISTORY: Mother with breast cancer. Remote left excisional breast biopsy TECHNIQUE: Digital bilateral breast isrrael (3D mammographic acquisition) in the CC and MLO projections. 2-D mediolateral oblique (MLO) and craniocaudad (CC) views of both breasts were obtained. CAD: Full Field Digital Mammography with Computer Added Detection was performed. COMPARISON: Comparison is made with prior study dated January 17, 2022 and January 30, 2021. FINDINGS: Breast Composition: There are scattered areas of fibroglandular density. There are no dominant masses or suspicious calcifications. A tissue clip marker is once again seen in the deep upper lateral aspect of the left breast. Stable benign-appearing bilateral axillary lymph nodes. No other significant abnormalities are identified. There has been no significant change since the prior study. BI/SCRN MAMM (CAD)W/ISRRAEL BILAT IMPRESSION: Stable bilateral screening mammogram. Yearly follow-up mammogram recommended. (A) ASSESSMENT CATEGORY: BIRADS Category 2: Benign. A letter regarding these results will be sent to the patient by the facility within 30 days. Approximately 10% of breast cancers are not detected by mammography. A normal mammogram should not delay biopsy of a clinically suspicious abnormality. [id number] Electronically Signed: Tre Duarte MD at 14:18 EDT ,
[2023-01-27 12:07] LABS: HPV APTIMA, High Risk Negative (Negative)
== END | disposition home or self-care (01) ==
PROVIDERS: PCP Family Medicine; Referring Provider Nurse Practitioner Women's Health; Visit Provider Nurse Practitioner Women's Health
DX: Z12.31 Encounter for screening mammogram for malignant neoplasm of breast (principal); Z80.3 Family history of malignant neoplasm of breast
CPT/HCPCS: 77063; 77067; 87624; 88175; G0145

== ENCOUNTER → 2024-01-27 | Outpatient (CLI) | payer OTHER, SELFPAY ==
--- NOTE | 2024-01-27 15:36 | BI_ITS ---
MAMMOGRAPHY - BILATERAL SCREENING REASON FOR EXAM: Female, 63 years old. Routine annual screening examination. PERTINENT HISTORY: Mother with breast cancer. Prior left excisional breast biopsy and left breast aspiration. TECHNIQUE: Digital bilateral breast isrrael (3D mammographic acquisition) in the CC and MLO projections. 2-D mediolateral oblique (MLO) and craniocaudad (CC) views of both breasts were obtained. CAD: Full Field Digital Mammography with Computer Added Detection was performed. COMPARISON: Comparison is made with prior study dated January 21, 2023 and January 17, 2022. FINDINGS: Breast Composition: There are scattered areas of fibroglandular density. There are no dominant masses or suspicious calcifications. A tissue clip marker is once again seen in the deep upper lateral aspect of the left breast. No other significant abnormalities are identified. There has been no significant change since the prior study. BI/SCRN MAMM (CAD)W/ISRRAEL BILAT IMPRESSION: Stable bilateral screening mammogram. Yearly follow-up mammogram recommended. (A) ASSESSMENT CATEGORY: BIRADS Category 2: Benign. A letter regarding these results will be sent to the patient by the facility within 30 days. Approximately 10% of breast cancers are not detected by mammography. A normal mammogram should not delay biopsy of a clinically suspicious abnormality. [id number] Electronically Signed: Tre Duarte MD at 8:44 EDT ,
== END | disposition home or self-care (01) ==
LOC: OPBI 15:36
PROVIDERS: PCP Family Medicine; Referring Provider Nurse Practitioner Women's Health; Visit Provider Nurse Practitioner Women's Health
DX: Z12.31 Encounter for screening mammogram for malignant neoplasm of breast (principal)
CPT/HCPCS: 77063; 77067

== ENCOUNTER 2024-03-13 12:48 | Day surgery (SDC) | payer OTHER, SELFPAY ==
[2024-03-13] VITALS (8 sets, daily range): BP systolic 79–167; BP diastolic 64–79; PULSE 84–99; RESP 14–16; TEMP 35.9–37.2; O2SAT 93–100; BMI 30.7
--- NOTE | 2024-03-13 08:20 | RAD_ITS ---
STUDY: X-RAY - ABDOMEN/PELVIS REASON FOR EXAM: Female, 63 years old. Kidney stone TECHNIQUE: Single AP view of the abdomen / pelvis. COMPARISON: None. FINDINGS: There is an abundance of fecal material throughout the colon. Calcified phleboliths are seen in the pelvis. There is a 1 cm calculus in the lower pole calyx of the left kidney. Normal soft tissue structures. There are degenerative changes of the visualized lumbar spine. RAD/Abdomen Single View IMPRESSION: 1 cm calculus in the lower pole calyx of the left kidney. Large amount of fecal material is seen in the colon. Calcified phleboliths are seen in the pelvis. Electronically Signed: Tre Duarte MD at 13:43 EDT ,
[2024-03-13] MEDS: Lactated Ringers 1,000 ML 15 ML IV (13:50)
[2024-03-13] MEDS: Ketorolac 15 MG/ML Vial IV (15:03)
--- NOTE | 2024-03-13 15:04 | HP.PCM_ITS ---
HPI - General General Date of Service: 03/13/24 Chief Complaint: Left large kidney stone HPI Narrative RADAMES ESCAMILLA, is a 63 F who presents For treatment of a large left kidney stone with shockwave lithotripsy possible laser [facility] Medical History Wears contact lenses Wears glasses Arthritis History of renal disease High cholesterol Fatty liver Gastric reflux Former smoker History of stress test Pre-diabetes Seasonal allergies Anxiety Chronic back pain Chronic neck pain Hiatal hernia Hypertension Home Medications ?Medication ?Instructions ?Recorded ?Last Taken ?Type lisinopril 10 mg tablet 10 mg PO QDAY 01/23/18 03/13/24 History tramadol 50 mg tablet 100 mg PO BID PRN pain 01/23/18 03/13/24 History omeprazole 20 mg capsule,delayed 20 mg PO PRN PRN GERD 02/25/19 03/12/24 History release hydroxyzine HCl 25 mg tablet 25 mg PO TID PRN anxiety 02/10/24 Unknown History loratadine 10 mg tablet (Allergy 10 mg PO DAILY PRN allergy symptoms 02/10/24 03/12/24 History Relief (loratadine)) multivitamin 1 tab PO DAILY 02/11/24 03/12/24 History ciprofloxacin HCl 500 mg tablet 500 mg PO BID #10 tabs 03/13/24 Unknown Rx (Cipro) ibuprofen 600 mg tablet 600 mg PO Q6H PRN fever or pain 03/13/24 Unknown Rx #20 tabs phenazopyridine 100 mg tablet 100 mg PO TID #15 tabs 03/13/24 Unknown Rx (Pyridium) tamsulosin 0.4 mg capsule (Flomax) 0.4 mg PO DAILY #10 caps 03/13/24 Unknown Rx Allergy/AdvReac Type Severity Reaction Status Date / Time Seasonal Allergies: Uncoded Allergy Intermediate NEEDS Verified 03/13/24 13:36 FOLLOW-UP Penicillins Allergy Mild unknown Verified 03/13/24 13:36 codeine AdvReac Mild upset Verified 03/13/24 13:36 stomach Family History Father Diabetes Colon cancer Heart disease Mother Hypertension Breast cancer Esophageal cancer Other CVA (cerebral vascular accident) Surgical History History of cervical polypectomy History of dilation and curettage umbilical surgery Status post left breast lumpectomy Social History Smoking Status: Former smoker alcohol intake: never substance use type: does not use caffeine: No what type of physical activity do you participate in: none seatbelt use: always do you feel safe at home: Yes additional social history: - [employer]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 Large amount of fecal material is seen in the colon. Calcified phleboliths are seen in the pelvis. Electronically Signed: Tre Duarte MD at 13:43 EDT ,
--- NOTE | 2024-03-13 15:04 | DCINST_ITS ---
Discharge Instructions Diet Discharge Diet: No restrictions Activity Discharge Activity: Return to Normal Activity and May Not Drive (while taking narcotic pain medications.) Dressing / Incision Call your doctor if you observe: Fever of 101 or Higher Follow Up Care Please Follow Up With: Doug Rowland MD When: Call [phone] for an appointment Test Results: Test results from this visit will be discussed in further detail at your follow- up appointment, if applicable. Discharge Plan Admission Primary Reason for Your Visit: Treatment of left kidney stone Attending Provider: Doug Rowland Primary Care Provider: Yefri Sahni Instructions Print Language: Djib[place]ian Discharge Orders/Prescriptions Prescriptions: New ciprofloxacin HCl [Cipro] 500 mg tablet 500 mg PO BID Qty: 10 0RF tamsulosin [Flomax] 0.4 mg capsule 0.4 mg PO DAILY Qty: 10 0RF phenazopyridine [Pyridium] 100 mg tablet 100 mg PO TID Qty: 15 0RF ibuprofen 600 mg tablet 600 mg PO Q6H PRN (Reason: fever or pain) Qty: 20 0RF Continued lisinopril 10 mg tablet 10 mg PO QDAY tramadol 50 mg tablet 100 mg PO BID PRN (Reason: pain) omeprazole 20 mg capsule,delayed release(DR/EC) 20 mg PO PRN PRN (Reason: GERD) hydroxyzine HCl 25 mg tablet 25 mg PO TID PRN (Reason: anxiety) loratadine [Allergy Relief (loratadine)] 10 mg tablet 10 mg PO DAILY PRN (Reason: allergy symptoms) multivitamin Tablet 1 tab PO DAILY Referrals / Follow Up: Doug Rowland MD [Med Staff - Active Staff] - Yefri Sahni MD [Primary Care Provider] - Disposition Disposition (needs filled in before D/C Order can be placed): Home, Self Care
[2024-03-13] MEDS: Lactated Ringers 1,000 ML 100 ML IV (15:15)
[2024-03-13] MEDS: Cefazolin 2 GM in 0.9% Normal Saline (100mL Bag) 100 ML IV (15:21)
--- NOTE | 2024-03-13 16:30 | OP.PCM_ITS ---
Report of Operation Date of Procedure: 03/13/24 Pre-Operative Diagnosis: Left kidney stone Post-Operative Diagnosis: The same Surgery/Procedure Performed:: Cystoscopy left stent placement left extracorporeal shockwave lithotripsy Description of Surgical Findings:: Patient takeback to the operative room at this with induction of anesthesia she was placed upon the table, the urethrovaginal area prepped and draped in usual fashion I did dilate the meatus is very tight and then went into the bladder with a 21 Sinhala rigid cystourethroscope I then cannulated the left ureter orifice with a Glidewire advanced a wire up into the kidney and then over the wire I placed a stent it was a 6 Sinhala by 26 cm stent once a good position then the patient was placed on the lithotripter table and we proceeded with shockwave lithotripsy of the stone in the left kidney stone was visualized and placed in the F2 focal point and after 3000 shockwaves the stone disappeared completely with complete fragmentation of the stone. Successful fragmentation of the stone with left stent in place I cut the string on the stent to the mid short patient acetic was reversed taken back to PACU in good condition plan to see her back next week for cystoscopy stent removal. Surgeon: Doug Rowland Type of Anesthesia: General Drains: stent Estimated Blood Loss (mL): 0 Admit VTE Documentation VTE Present on Admission: No VTE Mechan Device Prophylaxis: SCD's VTE Pharm Prophylaxis ordered?: No
[2024-03-13] MEDS: Acetaminophen 325 MG Tablet 650 MG PO (17:47)
== END 2024-03-13 19:48 | disposition home or self-care (01) ==
LOC: SDC 12:48 → AC 12:48
PROVIDERS: PCP Family Medicine; Referring Provider Urology; Visit Provider Urology
PROC: (CPT 50590; principal; 2024-03-13 14:50)
DX: N20.0 Calculus of kidney (principal); I10 Essential (primary) hypertension; Z79.899 Other long term (current) drug therapy; Z87.891 Personal history of nicotine dependence
CPT/HCPCS: 52356; 00873; 74018; J7120; C1769; J2405

== ENCOUNTER → 2024-06-12 | Outpatient (CLI) | payer OTHER, SELFPAY ==
--- NOTE | 2024-06-12 13:46 | ECHOD_ITS ---
Reason For Study: ABN EKG Procedure This was a 2D Doppler, Color Flow transthoracic echocardiogram. Exam performed in department. Left Ventricle Normal LV size. Left ventricular systolic function is normal. The left ventricular ejection fraction is 70 %. Stage 1 diastolic dysfunction. No regional wall motion abnormalities noted. Right Ventricle Normal RV size. Normal systolic function. Atria Normal left atrium. Normal right atrium. Mitral Valve Normal mitral valve. Tricuspid Valve Normal tricuspid valve. Aortic Valve Normal aortic valve. Pulmonic Valve Normal pulmonic valve. Great Vessels Normal aortic root. The pulmonary artery is normal size. Normal inferior vena cava. Pericardium/Pleural No pericardial effusion. MMode/2D Measurements & Calculations LVIDd: 3.8 cm IVSd: 0.76 cm Ao root diam: 3.1 cm LVIDs: 1.8 cm LVPWd: 1.0 cm FS: 51.5 % LAV(MOD-bp): 26.2 ml LVAd ap4: 19.6 cm2 SV(MOD-sp4): 35.5 ml LAV(MOD-bp) Indexed: 15.1 ml/m2 LVLd ap4: 6.5 cm LAV(MOD-sp2): 22.7 ml EDV(MOD-sp4): 50.9 ml LAV(MOD-sp4): 28.3 ml EDV(sp4-el): 50.0 ml LVAs ap4: 9.3 cm2 LVLs ap4: 5.2 cm ESV(MOD-sp4): 15.4 ml ESV(sp4-el): 14.2 ml EF(MOD-sp4): 69.7 % EF(sp4-el): 71.6 % SV(sp4-el): 35.8 ml LA A4 area: 13.0 cm2 LA dimension(2D): 3.3 cm RA A4 area: 13.3 cm2 TAPSE: 2.0 cm Time Measurements MV dec time: 0.08 sec Doppler Measurements & Calculations MV E max jey: 84.5 cm/sec Lat Peak E' Jey: 10.3 cm/sec Med Peak E' Jye: 7.6 cm/sec MV A max jey: 102.7 cm/sec E/E' lat: 8.2 E/E' med: 11.2 MV E/A: 0.82 MV V2 max: 135.1 cm/sec Ao V2 max: 116.0 cm/sec MV max P.3 mmHg MV dec slope: 1013 cm/sec2 Ao max P.4 mmHg MV V2 mean: 80.8 cm/sec Ao V2 mean: 81.2 cm/sec MV mean P.0 mmHg Ao mean P.9 mmHg MV V2 VTI: 25.8 cm Ao V2 VTI: 24.9 cm AV (velocity ratio): 1.0 LV V1 max: 113.0 cm/sec PA V2 max: 105.7 cm/sec LV V1 max P.1 mmHg PA V2 mean: 69.6 cm/sec LV V1 mean P.9 mmHg LV V1 mean: 81.7 cm/sec LV V1 VTI: 25.5 cm ECHO/Echo Complete Interpretation Summary Normal LV size. Left ventricular systolic function is normal. The left ventricular ejection fraction is 70 %. Stage 1 diastolic dysfunction. Ordering Physician: Chester Lima Referring Physician: Chester Lima Performed By: Page Thibodeaux RCS
== END | disposition home or self-care (01) ==
PROVIDERS: PCP Internal Medicine; Referring Provider Internal Medicine Cardiovascular Disease; Visit Provider Internal Medicine Cardiovascular Disease
DX: R94.31 Abnormal electrocardiogram [ECG] [EKG] (principal)
CPT/HCPCS: 93306

== ENCOUNTER 2024-07-28 10:32 | Day surgery (SDC) | payer OTHER, SELFPAY ==
[2024-07-28] VITALS (9 sets, daily range): BP systolic 92–135; BP diastolic 60–88; PULSE 16–95; RESP 16; TEMP 36.5; O2SAT 97–100; BMI 30.8
--- NOTE | 2024-07-28 11:08 | PCM.PRE.AN2 ---
ASA Classification* ASA Classification ASA Classification: 2 Assessment & Plan Anesthesia* Anesthesia Assessment Anesthesia Assessment: Discussed sedation and/or anesthesia options, risks, benefits, and alternatives with patient/parents/legal guardian/POA. Questions invited. The patient/parents/legal guardian/POA seems to understand and agrees to proceed with anesthesia plan. Reviewed the physical assessment, medical history, allergy history and patient home medications list prior to surgery/procedure/anesthetic and documented any changes. Performed airway and anesthesia risk assessments. Anesthesia Type Anesthesia Type: MAC History Source History Obtained from:: Patient and Chart Anesthesia Focused Assessment* Temperature: 97.7 F Pulse Rate: 95 Blood Pressure: 135/72 Respiratory Rate: 16 Pulse Ox: 100 Oxygen Delivery Method: Room Air Airway Assessment Mouth opens: >3 cm Mallampati Score: IV Teeth Condition: Caps/Crowns (Patient has implant in #10. It is tight.), Missing (Patient is missing several teeth.) and Partial (Patient has top and bottom partials. They are out.) Neck Range of motion (ROM): Full ROM Focused Labs Anesthesia Preop lab: CBC WBC 5.6 K/mm3 (4.4-11.0) 12/26/20 13:34 RBC 4.36 M/mm3 (4.2-5.4) 12/26/20 13:34 Hgb 13.5 g/dL (12.0-15.0) 12/26/20 13:34 Hct 41.6 % (37-47) 12/26/20 13:34 Plt Count 173 K/mm3 (150-450) 12/26/20 13:34 CHEMISTRY COAG Pre-Assessment Diagnosis/Proposed Procedure Planned Operative Procedure(s): CSCOPE/OA Anesthesia History Anesthesia History - racecourse barrier attendant: Anesthesia History - racecourse barrier attendant Hx Hospitalization No 07/24/24 13:17 Any Problems With Anesthesia Yes: N,V WITH GENERAL 07/24/24 13:17 ANESTHESIA Cholinesterase deficiency No 07/24/24 13:17 You/Your Family Experience No 07/24/24 13:17 fever (hyperthermia) with Relationship Recent Exposure to Contagious No 07/28/24 10:48 Disease Does patient have nerve No 07/24/24 13:17 stimulator Patient instructed to have device shut off --Does patient have Pacemaker No 07/28/24 10:48 or ICD? When Was Last Pacemaker Check QUESTION #4 FULL TEXT: You/Your Family Experience fever (hyperthermia) with Anesthesia Last Oral Intake Last Oral intake: Last Oral Intake NPO since Meds taken in AM with sips of water? Meds patient instructed to take am of surgery Any additional information?: Yes NPO since: 00:00 Meds taken in AM with sips of water?: Yes PONV PONV - racecourse barrier attendant: PONV - racecourse barrier attendant Female Yes 07/24/24 13:17 HX of Motion Sickness No 07/24/24 13:17 HX of N/V After Surgery Yes 07/24/24 13:17 Non-Smoker Yes 07/24/24 13:17 Duration of Surgery greater No 07/24/24 13:17 than 60 minutes Number of Risk Factors 3 07/24/24 13:17 PONV Score Moderate Risk 07/24/24 13:17 Height & Weight Height & Weight: Anesthesia: Height & Weight Height 5 ft 1 in 07/28/24 10:48 Weight: 74 kg 07/28/24 10:48 Body Mass Index (BMI) 30.8 07/28/24 10:48 Respiratory Assessment Respiratory Assessment - racecourse barrier attendant: Respiratory Tract Infection Hx - racecourse barrier attendant Hx Respiratory Tract Infection No 07/24/24 13:17 STOP Sleep Apnea STOP Sleep Apnea - racecourse barrier attendant: STOP Sleep Apnea - racecourse barrier attendant Hx Hypertension Yes: CONTROLLED WITH MED 07/24/24 13:17 Hx Sleep Apnea No 07/24/24 13:17 CPAP No 07/24/24 13:17 BIPAP Do you snore loudly (louder No 07/24/24 13:17 than talking or can be heard Do you often feel tired/ No 07/24/24 13:17 fatigued/ sleepy during daytime? Has anyone observed you stop No 07/24/24 13:17 breathing during sleep? STOP Results Negative 07/24/24 13:17 QUESTION #5 FULL TEXT : Do you snore loudly (louder than talking or can be heard through closed doors)? Tobacco Use History Tobacco Use History - racecourse barrier attendant: Tobacco Use History - racecourse barrier attendant Tobacco Use Smoking Status Former smoker 07/24/24 13:17 Hx Tobacco Use No 07/24/24 13:17 Years Smoking Packs Smoked per Day Smoking Cessation Date was No - quit smoking greater 07/24/24 13:17 within the last 15 years than 15 years ago Hx Smoking Cessation Date Hx Smoking Cessation No 07/24/24 13:17 Counseling Hematologic Medial History Hematologic Hx - racecourse barrier attendant: Hematologic Medical Hx - plant packer Hx of Blood Transfusion No 07/24/24 13:17 Hx of Transfusion in last 3 No 07/24/24 13:17 Months Date of Last Transfusion (if within last 3 months) Ever experience any problems No 07/24/24 13:17 with transfusion(s)? Specify any problems Hx of Preganancy in last 3 No 07/24/24 13:17 Months Nurse Filling Out Transfusion DSCHRIBER 07/24/24 13:17 & Questions: Date: 07/24/24 07/24/24 13:17 Time: 13:19 07/24/24 13:17 Patient unable to answer at this time (ie. confused, unrespo /Reproduction History /Reproductive History - racecourse barrier attendant: /Reproductive Hx- racecourse barrier attendant Hx Now No 07/24/24 13:17 Gestational Age (in weeks): EDC: Hx Hx Para Hx Section SAB No 07/24/24 13:17 PFSH Medical History (Updated 07/24/24 @ 13:23 by Birgit Peters) History of echocardiogram Cardiology follow-up encounter Personal history of colonic polyps Fibromyalgia Arthritis History of renal disease High cholesterol Fatty liver Gastric reflux Pulmonary nodules Polyposis associated with heterozygous mutation in MUTYH gene Family history of colon cancer in father Simple endometrial hyperplasia without atypia Pre-diabetes Anxiety Chronic back pain Chronic neck pain Hiatal hernia Hypertension Home Medications ?Medication ?Instructions ?Recorded ?Last Taken ?Type lisinopril 10 mg tablet 10 mg PO QDAY 01/23/18 07/28/24 History omeprazole 20 mg capsule,delayed 20 mg PO PRN PRN GERD 02/25/19 07/28/24 History release hydroxyzine HCl 25 mg tablet 25 mg PO TID PRN anxiety 02/10/24 Unknown History loratadine 10 mg tablet (Allergy 10 mg PO DAILY PRN allergy symptoms 02/10/24 03/12/24 History Relief (loratadine)) multivitamin 1 tab PO DAILY 02/11/24 03/12/24 History ibuprofen 600 mg tablet 600 mg PO Q6H PRN fever or pain 03/13/24 Unknown Rx #20 tabs tramadol 50 mg tablet 100 mg PO BID pain 04/20/24 07/28/24 History Allergy/AdvReac Type Severity Reaction Status Date / Time Seasonal Allergies: Uncoded Allergy Intermediate Itching Verified 07/28/24 10:47 Penicillins Allergy Mild unknown Verified 07/28/24 10:47 codeine AdvReac Mild upset Verified 07/28/24 10:47 stomach Family History Father Diabetes Colon cancer Heart disease Mother Hypertension Breast cancer Esophageal cancer Other CVA (cerebral vascular accident) Surgical History (Updated 07/24/24 @ 13:21 by Birgit Peters) Hx of umbilical hernia repair Hx of cystoscopy Hx of colonoscopy History of cervical polypectomy History of dilation and curettage Status post left breast lumpectomy Social History (Updated 06/25/24 @ 13:38 by Teresa Feliz) current occupational status: retired Smoking Status: Former smoker alcohol intake: never substance use type: does not use caffeine: No what type of physical activity do you participate in: none seatbelt use: always do you feel safe at home: Yes 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
--- NOTE | 2024-07-28 12:00 | COLBX_PTH ---
PATIENT: RADAMES ESCAMILLA LOC: EN U#:[id number] AGE/SX: 64/F ROOM: RE07/28/[address]: Dr. Devon Fowler DO : 1960 BED: DIS: 07/28/2024 SPEC #: [id number] RECD: 07/28/24 14:49 STATUS: RONAK YANYung #: [id number] IRON: 07/28/24 12:[address]: Devon Fowler DEPT: SURGICAL PATHOLOGY RECD BY: Cheryl Bates ENTERED: 07/29/24 10:35 SP TYPE: COLON BX FALGUNI DR: Dr. Lisa Gar MD Tissues: A - COLON BIOPSY B - Cecum, NOS Procedures: Surgery Specimen Level IV HEADER OPERATION: Colonoscopy with biopsy PRE-OP DIAGNOSIS: Encounter for screening for malignant neoplasm of colon TISSUE SUBMITTED: A- Splenic flexure biopsy, B- Cecal polyp biopsy MICROSCOPIC DIAGNOSIS A. Colon at splenic flexure, biopsy: Polypoid fragments of benign colonic mucosa. See comment. B. Cecal polyp, biopsy: Fragments of hyperplastic polyp. AM. 07/30/2024 COMMENT A. Neither hyperplastic nor adenomatous change is identified. Clinical correlation is suggested. MICROSCOPIC DESCRIPTION Slides are reviewed. GROSS DESCRIPTION A. Received in fixative is one container labeled with the patient's name and designated Splenic flexure biopsy. The specimen consists of two irregular fragments of light vanegas soft tissue that in aggregate measure 0.5 x 0.3 x 0.1 cm. The specimen is totally submitted in one cassette. B. Received in fixative is one container labeled with the patient's name and designated Cecal polyp biopsy. The specimen consists of two irregular fragments of light vanegas soft tissue that in aggregate measure 0.6 x 0.3 x 0.1 cm. The specimen is totally submitted in one cassette. EDWARD. 07/29/2024 TC:5 [facility]:[id number]
--- NOTE | 2024-07-28 12:26 | HP.PCM_ITS ---
[facility] - General General Date of Admission: 07/28/24 Date of Service: 07/28/24 Chief Complaint: Screening colonoscopy HPI Narrative RADAMES ESCAMILLA, is a 64 F who presents today for screening colonoscopy. She has a past medical history of pulmonary nodules, CHF, COPD, diabetes. She gets colonoscopies every 5 years due to family history of colon polyps and colon cancer. [facility] Medical History (Updated 07/24/24 @ 13:23 by Birgit Peters) History of echocardiogram Cardiology follow-up encounter Personal history of colonic polyps Fibromyalgia Arthritis History of renal disease High cholesterol Fatty liver Gastric reflux Pulmonary nodules Polyposis associated with heterozygous mutation in MUTYH gene Family history of colon cancer in father Simple endometrial hyperplasia without atypia Pre-diabetes Anxiety Chronic back pain Chronic neck pain Hiatal hernia Hypertension Home Medications ?Medication ?Instructions ?Recorded ?Last Taken ?Type lisinopril 10 mg tablet 10 mg PO QDAY 01/23/18 07/28/24 History omeprazole 20 mg capsule,delayed 20 mg PO PRN PRN GERD 02/25/19 07/28/24 History release hydroxyzine HCl 25 mg tablet 25 mg PO TID PRN anxiety 02/10/24 Unknown History loratadine 10 mg tablet (Allergy 10 mg PO DAILY PRN allergy symptoms 02/10/24 03/12/24 History Relief (loratadine)) multivitamin 1 tab PO DAILY 02/11/24 03/12/24 History ibuprofen 600 mg tablet 600 mg PO Q6H PRN fever or pain 03/13/24 Unknown Rx #20 tabs tramadol 50 mg tablet 100 mg PO BID pain 04/20/24 07/28/24 History Allergy/AdvReac Type Severity Reaction Status Date / Time Seasonal Allergies: Uncoded Allergy Intermediate Itching Verified 07/28/24 10:47 Penicillins Allergy Mild unknown Verified 07/28/24 10:47 codeine AdvReac Mild upset Verified 07/28/24 10:47 stomach Family History Father Diabetes Colon cancer Heart disease Mother Hypertension Breast cancer Esophageal cancer Other CVA (cerebral vascular accident) Surgical History (Updated 07/24/24 @ 13:21 by Birgit Peetrs) Hx of umbilical hernia repair Hx of cystoscopy Hx of colonoscopy History of cervical polypectomy History of dilation and curettage Status post left breast lumpectomy Social History (Updated 06/25/24 @ 13:38 by Teresa Feliz) current occupational status: retired Smoking Status: Former smoker alcohol intake: never substance use type: does not use caffeine: No what type of physical activity do you participate in: none seatbelt use: always do you feel safe at home: Yes 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 working ROS Review of Systems ROS Unobtainable: other Constitutional Constitutional: Denies fatigue, fever(s), poor appetite, weight gain or weight loss ENT HEENT: Denies mouth lesions Cardiovascular Cardiovascular: Denies abdominal bloating, abdominal edema or abdominal pain Respiratory/Chest Respiratory/Chest: Denies change in mental status, change in phlegm color, chest congestion or chest tightness Gastrointestinal Gastrointestinal: Denies belching, bloating, change in bowel habits, change in stool character, chewing difficulty, coffee ground emesis, constipation, cramping, diarrhea, dyspepsia, dysphagia, early satiety, excessive flatus, fecal incontinence, heartburn, hematemesis, hematochezia, hemorrhoids, loose stools, melena, nausea, odynophagia, rectal bleeding, tenesmus, vomiting or weight changes Genitourinary Genitourinary: Denies abdominal discomfort, burning urination or itching Musculoskeletal Musculoskeletal: Reports as per HPI; Denies muscle weakness or myalgias Integumentary Integumentary: Denies jaundice Neurologic Neurologic: Denies lack of coordination or weakness Psychiatric Psychiatric: Denies confusion, depression, memory loss, mood swings, paranoia or suicidal ideation Endocrine Endocrinology: Denies systems reviewed and no addt'l complaints, except as documented Hematologic/Lymphatic Hematologic/Lymphatic: Denies anemia, easy bleeding, easy bruising or lymphadenopathy Allergic/Immunologic Allergic/Immunologic: Denies systems reviewed and no addt'l complaints, except as documented Vital Signs Vital Signs Vital Signs: 07/28/24 10:48 07/28/24 10:48 07/28/24 11:15 Temperature 97.7 F L 97.7 F L Temperature Source Temporal Pulse Rate 95 95 Respiratory Rate 16 16 Respiratory Pattern Normal Blood Pressure 135/72 H 135/72 H Blood Pressure Mean 93 Blood Pressure Source Monitor Blood Pressure Position Semi-Fowlers Blood Pressure Location Left Arm Pulse Ox 100 100 Oxygen Delivery Method Room Air Room Air Weight Weight: 163 lb 2.273 oz Body Mass Index (BMI) 30.8 Physical Exam Const alert, oriented x3, no apparent distress, healthy appearing and well nourished General Appearance: cooperative, comfortable, well kempt and well developed Orientation / Consciousness: awake and oriented to person HEENT Head and Scalp: normocephalic and atraumatic Face and Sinus: normal facial exam Mouth: oral and palatal mucosa normal Eyes General Eye: normal appearance of both eyes Neck full ROM Lymph Lymphatic: no lymphadenopathy noted Chest inspection of chest normal Resp normal respiratory effort and no use of accessory muscles Cardio regular rate and regular rhythm GI normal to inspection, nondistended, normoactive bowel sounds, soft to palpation, non-tender, non-distended and no masses Auscultation: normoactive bowel sounds Palpation: soft Percussion: normal to percussion Rectal Exam: visual inspection normal and normal sphincter tone no CVA tenderness Back/Spine no CVA tenderness and normal ROM Extremity normal to inspection Peripheral Pulses: Yes pulses 2+ throughout Skin no rashes or lesions noted General Skin Exam: no breakdown, elasticity normal and turgor normal Neuro oriented x3 Motor Exam: strength 5/5 throughout Psych mental status grossly normal Appearance: grossly normal Attitude: calm Activity / Motor Behavior: appropriate eye contact Speech: normal speech Thought Process: normal thought process Thought Content: normal thought content Attention / Concentration: attention grossly intact Memory / Cognition: memory grossly intact Insight: insight good Judgement: judgement good Assessment & Plan Assessment/Plan (1) Encounter for screening for malignant neoplasm of colon: PLAN: She will find therapist, risk elevated eccentrically, infection, sepsis, perforation, need for charge and . She will have an ASA of 3.
--- NOTE | 2024-07-28 13:08 | PCM.POST.ANE ---
Anesthesia: Postop Eval I Current Vital Signs Temperature: 97.7 F Pulse Rate: 16 Blood Pressure: 100/64 Respiratory Rate: 16 Pulse Ox: 98 Oxygen Delivery Method: Room Air Assessment Airway patent: Yes Spontaneous unlabored respirations: Yes Mental status: Asleep nausea: No Vomiting: No Anesthesia Complication: No Fluid Hydration Crystalloid volume administer (ml): 55 Total IV fluid infused: 55 Progress Note Anesthesia document: Postop Eval 1 completed: Yes
--- NOTE | 2024-07-28 13:13 | OP.COLON_ITS ---
Patient Name: Terri Mccallum Procedure Date: 07/28/2024 12:41 PM Date of : 1960 Age: 64 Procedure: Colonoscopy Indications: Screening for colorectal malignant neoplasm, Family history of colonic polyps in a first-degree relative, Family history of advanced adenoma of the colon in a first-degree relative before age 60 years Providers: Devon Fowler DO Medicines: Monitored Anesthesia Care Patient Profile: This is a 64 year old female. Refer to note in patient chart for documentation of history and physical. Last Colonoscopy: 5 years ago. Complications: No immediate complications. Procedure: Pre-Anesthesia Assessment: - Prior to the procedure, a History and Physical was performed, and patient medications and allergies were reviewed. The patient is competent. The risks and benefits of the procedure and the sedation options and risks were discussed with the patient. All questions were answered and informed consent was obtained. Patient identification and proposed procedure were verified by the physician in the pre-procedure area. Mental Status Examination: alert and oriented. Airway Examination: normal oropharyngeal airway and neck mobility. Respiratory Examination: clear to auscultation. CV Examination: normal. Prophylactic Antibiotics: The patient does not require prophylactic antibiotics. Prior Anticoagulants: The patient has taken no anticoagulant or antiplatelet agents. ASA Grade Assessment: II - A patient with mild systemic disease. After reviewing the risks and benefits, the patient was deemed in satisfactory condition to undergo the procedure. The anesthesia plan was to use monitored anesthesia care (MAC). Immediately prior to administration of medications, the patient was re-assessed for adequacy to receive sedatives. The heart rate, respiratory rate, oxygen saturations, blood pressure, adequacy of pulmonary ventilation, and response to care were monitored throughout the procedure. The physical status of the patient was re-assessed after the procedure. After I obtained informed consent, the scope was passed under direct vision. Throughout the procedure, the patient's blood pressure, pulse, and oxygen saturations were monitored continuously. The colonoscope was introduced through the anus and advanced to the cecum, identified by appendiceal orifice and ileocecal valve. The colonoscopy was performed without difficulty. The patient tolerated the procedure well. The quality of the bowel preparation was adequate. The terminal ileum, ileocecal valve, appendiceal orifice, and rectum were photographed. Scope In: 12:42:30 PM Scope Withdrawal Time 0 hours 11 minutes 4 seconds Scope Out: 12:58:38 PM Total Procedure Duration Time 0 hours 16 minutes 8 seconds Findings: The perianal and digital rectal examinations were normal. A few small-mouthed diverticula were found in the recto-sigmoid colon and sigmoid colon. Segmental mild mucosal changes characterized by congestion (edema) were found at the splenic flexure. Biopsies were taken with a cold forceps for histology. Verification of patient identification for the specimen was done. Estimated blood loss was minimal. A polyp was found in the ascending colon. The polyp was sessile. The polyp was removed with a jumbo cold forceps. Resection and retrieval were complete. Verification of patient identification for the specimen was done. Estimated blood loss was minimal. The exam was otherwise without abnormality on direct and retroflexion views. Stool was found in the ascending colon and in the cecum. Impression: - Diverticulosis in the recto-sigmoid colon and in the sigmoid colon. - Segmental mild mucosal changes were found at the splenic flexure secondary to colitis. Biopsied. - One polyp in the ascending colon, removed with a jumbo cold forceps. Resected and retrieved. - The examination was otherwise normal on direct and retroflexion views. - Stool in the ascending colon and in the cecum. Recommendation: - Discharge patient to home. - Resume previous diet. - Continue present medications. - Await pathology results. - Repeat colonoscopy in 5 years for surveillance. Procedure Code(s): --- Professional --- 80021, Colonoscopy, flexible; with biopsy, single or multiple CPT copyright 2021 [employer]. All rights reserved. The codes documented in this report are preliminary and upon coffee bar attendant review may be revised to meet current compliance requirements. Devon Fowler DO 07/28/2024 1:13:19 PM This report has been signed electronically. Number of Addenda: 0 Note Initiated On: 07/28/2024 12:41 PM
--- NOTE | 2024-07-28 13:14 | OP.CCLET_ITS ---
07/28/2024 Lisa Gar Re : Colonoscopy procedure for Terri Mccallum Dear Rin This procedure was performed on Sunday, July 28, 2024. My impressions and recommendations are as follows: Impressions : - Diverticulosis in the recto-sigmoid colon and in the sigmoid colon. - Segmental mild mucosal changes were found at the splenic flexure secondary to colitis. Biopsied. - One polyp in the ascending colon, removed with a jumbo cold forceps. Resected and retrieved. - The examination was otherwise normal on direct and retroflexion views. - Stool in the ascending colon and in the cecum. Recommendations : - Discharge patient to home. - Resume previous diet. - Continue present medications. - Await pathology results. - Repeat colonoscopy in 5 years for surveillance. My findings are described in the full procedure note, which is enclosed. If I can be of further assistance, please feel free to contact me at . Sincerely, Devon Fowler, 07/28/2024 1:13:19 PM This report has been signed electronically.
--- NOTE | 2024-07-28 17:14 | PCM.POSTANE2 ---
Anesthesia Postop Eval I Sum Postop Eval Completion status Anesthesia document: Postop Eval 1 completed: Yes Anesthesia Postop Eval I Summary Anesthesia Postop Eval I Summary: Anesthesia Postop Eval I: Assessment Summary Airway patent Yes 07/28/24 13:09 [email or web address] Spontaneous unlabored Yes 07/28/24 13:09 [email or web address] respirations Mental status Asleep 07/28/24 13:09 [email or web address] nausea No 07/28/24 13:09 [email or web address] Vomiting No 07/28/24 13:09 [email or web address] Anesthesia Postop Eval I: Fluid Summary Crystalloid volume administer 55 07/28/24 13:09 [email or web address] (ml) Colloids volume administered ( ml) Blood Product volume administered (ml) Total IV fluid infused 55 07/28/24 13:09 [email or web address] Anesthesia Postop Eval I: Summary Notes Anesthesia Complication No 07/28/24 13:09 [email or web address] Anesthesia Complication Comment: Post-operative progress note Anesthesia: Postop Eval II Evaluation Mental status: Awake Pain Level: 0 nausea: No Vomiting: No
== END 2024-07-28 13:49 | disposition home or self-care (01) ==
LOC: EN 10:32 → AC 10:33
PROVIDERS: PCP Internal Medicine; Referring Provider Internal Medicine; Visit Provider Internal Medicine Gastroenterology
PROC: 0DJD8ZZ Inspection of Lower Intestinal Tract, Via Natural or Artificial Opening Endoscopic (ICD-10-PCS; CPT 45378; principal; 2024-07-28 11:55)
DX: Z12.11 Encounter for screening for malignant neoplasm of colon (principal); I11.0 Hypertensive heart disease with heart failure; I50.9 Heart failure, unspecified; J44.9 Chronic obstructive pulmonary disease, unspecified; E11.9 Type 2 diabetes mellitus without complications; K57.30 Diverticulosis of large intestine without perforation or abscess without bleeding; K52.9 Noninfective gastroenteritis and colitis, unspecified; E78.00 Pure hypercholesterolemia, unspecified; Z87.891 Personal history of nicotine dependence; Z80.0 Family history of malignant neoplasm of digestive organs; Z83.719 Family history of colon polyps, unspecified; Z79.899 Other long term (current) drug therapy; D12.0 Benign neoplasm of cecum
CPT/HCPCS: 45380; 88305; A4216; J2405

== ENCOUNTER → 2025-01-27 | Outpatient (CLI) | payer OTHER, SELFPAY ==
--- NOTE | 2025-01-27 13:25 | BI_ITS ---
EXAM: SCRN MAMM (CAD)W/ISRRAEL BILAT DATE: 01/27/2025 CLINICAL HISTORY: F, Age 64 y/o , BREAST CANCER SCREENING Mother with breast cancer. History of prior left breast aspiration/biopsy. BREAST CANCER RISK ASSESSMENT: Not assessed. TECHNIQUE: Bilateral screening digital breast tomosynthesis with 2D and 3D images. Computer aided detection. COMPARISON: Prior exam(s) dated January 27, 2024.. FINDINGS: TISSUE DENSITY: The breast tissue is composed of scattered area of fibroglandular density. Bilateral Breast Mammographic Findings: No significant masses, calcifications or other abnormalities are identified. A tissue clip marker is once again seen in the deep upper lateral aspect of the left breast. No suspicious masses, areas of developing architectural distortion, or suspicious calcifications. There has been no significant interval change. BI/SCRN MAMM (CAD)W/ISRRAEL BILAT IMPRESSION: OVERALL FINAL ASSESSMENT: BIRADS 2 BENIGN FINDING RECOMMENDATION: Routine annual follow-up in 1 Year A letter with findings and recommendations will be mailed to the patient. Reading Location: [place] [id number]
== END | disposition home or self-care (01) ==
LOC: OPBI 13:23
PROVIDERS: PCP Internal Medicine; Referring Provider Nurse Practitioner Women's Health; Visit Provider Nurse Practitioner Women's Health
DX: Z12.31 Encounter for screening mammogram for malignant neoplasm of breast (principal); Z80.3 Family history of malignant neoplasm of breast
CPT/HCPCS: 77063; 77067

== ENCOUNTER → 2025-05-10 | Outpatient (CLI) | payer OTHER, SELFPAY ==
--- NOTE | 2025-05-10 13:30 | RAD_ITS ---
PROCEDURE: ABDOMEN SINGLE VIEW 05/10/2025 REASON FOR EXAM: HX OF URINARY CALCULI TECHNIQUE: ABDOMEN SINGLE VIEW COMPARISON: 03/13/2024. FINDINGS: Moderate amount of fecal residue in the large bowels. The previously noted left renal stone is not identified on the current exam. Normal visualized lung bases. There is an unremarkable bowel gas pattern. There is no demonstrated free abdominal air. Normal visualized liver. Normal visualized spleen. Normal visualized kidneys. The soft tissue structures of the pelvis are unremarkable. Moderate diffuse spondylosis. RAD/Abdomen Single View IMPRESSION: The previously noted left renal stone is not identified on the current exam. [facility]
== END | disposition home or self-care (01) ==
LOC: RAD 13:26
PROVIDERS: PCP Internal Medicine; Referring Provider Urology; Visit Provider Urology
DX: Z87.442 Personal history of urinary calculi (principal)
CPT/HCPCS: 74018